=== PATIENT | female | born 1995 | race Caucasian/White ===

== ENCOUNTER 2017-03-28 09:45 | Emergency (ER) | payer OTHER ==
[2017-03-28 09:51] VITALS: TEMP 97.9; O2SAT 97
--- NOTE | 2017-03-28 10:10 | EDPHY ---
H & P Stated Complaint: [place] like her heart was racing;recent tx for strep throat - Personal History LMP (Females 10-55): Now Current Tetanus Diphtheria and Acellular Pertussis (TDAP): Yes - Medical/Surgical History Other PMH: negative - Social History Smoking Status: Never smoked Time Seen by Provider: 03/28/17 09:53 HPI/ROS: CHIEF COMPLAINT: Palpitations, "heart racing" dyspnea, left chest discomfort HISTORY OF PRESENT ILLNESS: 21-year-old female generally healthy arrives via private vehicle stating that 1 week ago she was treated for strep pharyngitis. The symptoms have resolved. This morning (Tuesday) she was driving to work and had sudden onset of left-sided non pleuritic chest discomfort, dyspnea, palpitations, subjective tachycardia. She went to work, laid down in her car and developed subsequent self-described panic attack. She then went to [facility] and was referred to the ER for further evaluation. At the time of interview and examination she denies the subjective tachycardia sensation and palpitations with states that she continues to experience dyspnea and left-sided chest discomfort. There is no radiation of this chest discomfort. She did eat breakfast. No energy or caffeinated beverages. No syncope or near syncope. No abdominal pain. No history of illicit drug use including cocaine use. No exogenous estrogen use. No history of thyroid issues PRIMARY CARE PROVIDER:Dr. Jeff Horta REVIEW OF SYSTEMS: A ten point review of systems was performed and is negative with the exception of the items mentioned in the HPI PAST MEDICAL & SURGICAL HISTORY: No pertinent medical or surgical history SOCIAL HISTORY: Nonsmoker. No cocaine use. FAMILY HISTORY: No family history of premature coronary artery disease, no family history of thromboembolic disorder PHYSICAL EXAM (Prior to examination, patient consented to physical exam, hands were washed and my usual and customary physical exam procedures followed) 1) GENERAL: Well-developed, well-nourished, alert and oriented. Appears anxious 2) HEAD: Normocephalic, atraumatic 3) HEENT: Pupils equal, round, reactive to light bilaterally. Sclera anicteric. Nasopharynx, oropharynx, clear, no lesions. Ears bilaterally with normal tympanic membranes. 4) NECK: Full range of motion, no bruit 5) LUNGS: Clear auscultation bilaterally, no wheezes, no rhonchi, no retractions. 6) HEART: Regular rate and rhythm, no murmur, no heave, no gallop. 7) ABDOMEN: No guarding, no rebound, no focal tenderness, negative McBurney's, negative Black's, negative Rovsing's, negative peritoneal sign, 8) MUSCULOSKELETAL: negative Homans no palpable cord Moving all extremities, no focal areas of tenderness, no obvious trauma. No peripheral edema or discoloration. 9) BACK: No CVA tenderness, no midline vertebral tenderness, no fluctuance, no step-off, no obvious trauma, no visual or palpable abnormality. 10) SKIN: No rash, no petechiae. 11) Psychiatric: Patient is oriented X 3, there is no agitation. DIFFERENTIAL DIAGNOSIS: in no particular order including but not limited to cardiac arrhythmia, thyroid pathology, pulmonary embolus, pneumothorax (Tari,Shanna Yolanda) Constitutional: Initial Vital Signs Temperature (C) 36.6 C 03/28/17 09:49 Heart Rate 85 03/28/17 09:49 Respiratory Rate 18 03/28/17 09:49 Blood Pressure 107/76 03/28/17 09:49 O2 Sat (%) 97 03/28/17 09:49 O2 Delivery Mode Room Air Allergies/Adverse Reactions: No Known Allergies Allergy (Unverified 03/28/17 09:48) Home Medications: Medication Instructions Recorded NK [No Known Home Meds] 03/28/17 Medical Decision Making ED Course/Re-evaluation: 10:10 a.m.: Discussed case with Dr. Shyanne Freeman in the ER. Will obtain diagnostic studies and re-evaluate 11:23 a.m.: Patient re-evaluated with serial exams in the emergency department. Discussed her negative D-dimer and other lack of risk factors which I think sufficiently ruled out pulmonary embolus in this patient. Doubt cardiac etiology as she has no risk factors, no family history. At this time I do not think that further diagnostic studies indicated from the emergency department. I do not think that admission is currently indicated. We discussed that the patient's episodes this morning may have been secondary to acute anxiety reaction. The patient feels comfortable being discharged. Recommend following up with her primary care provider in 1-2 days. Definitely should she develop return of symptoms she needs to seek immediate medical attention. She has been informed that should she develop further episodes she may necessitate cardiology consultation. (Shanna Marc) This patient was evaluated and managed by the PA. I agree with the evaluation and plan of care. I am the secondary supervising physician. (Shyanne Freeman) - Data Points Laboratory Results: Laboratory Results 03/28/17 10:05 03/28/17 10:05 Departure - Departure Disposition: Home, Routine, Self-Care Clinical Impression: Palpitations Condition: Good Instructions: Palpitations (ED) Additional Instructions: Call 911 if you develop chest pain, shortness of breath, palpitation or any other symptoms that concern you Referrals: Jeff Horta, [Primary Care Provider] - 1-2 days without fail
[2017-03-28 10:19] LABS: % IMMATURE GRANULYOCYTES 0.2 % (0.0-1.1); ABSOLUTE IMMATURE GRANULOCYTES 0.01 10^3/uL (0.00-0.10); ADD DIFF? NO; ADD MORPH? NO; ADD SCAN? NO; ATYPICAL LYMPHOCYTE FLAG 20 (0-99); FRAGMENT RBC FLAG 0 (0-99); HEMATOCRIT 37.6 % (38.0-47.0); LEFT SHIFT FLG 20 (0-99); LIPEMIA HEMOLYSIS FLAG 90 (0-99); MEAN CELL HEMOGLOBIN 32.5 pg (27.9-34.1); MEAN CELL HEMOGLOBIN CONCENTR. 34.6 g/dL (32.4-36.7); MEAN PLATELET VOLUME 9.6 fL (8.7-11.7); PLATELET CLUMPS FLAG 0 (0-99); PLATELET COUNT 274 10^3/uL (150-400); RED CELL DISTRIBUTION WIDTH 11.8 % (11.5-15.2)
[2017-03-28 10:33] LABS: ANION GAP 12 mEq/L (8-16); CALCIUM 9.2 mg/dL (8.5-10.4); CARBON DIOXIDE 19 mEq/l (22-31); CHLORIDE 113 mEq/L (97-110); CREATININE 0.6 mg/dL (0.6-1.0); GLOMERULAR FILTRATION RATE > 60; GLUCOSE 97 mg/dL (70-100); POTASSIUM 4.2 mEq/L (3.5-5.2); SODIUM 144 mEq/L (134-144)
[2017-03-28 11:46] VITALS: BP 103/63; PULSE 67; RESP 16
--- NOTE | 2017-03-31 14:10 | CPEKG ---
Heart Rate: 77 RR Interval: 779 P-R Interval: 144 QRSD Interval: 86 QT Interval: 392 QTC Interval: 444 P Huxley: 51 QRS Huxley: 79 T Wave Huxley: 53 EKG Severity - NORMAL ECG - EKG Impression: SINUS RHYTHM Preliminary Awaiting MD Review
== END 2017-03-28 11:45 | disposition home or self-care (01) ==
DX: R00.2 Palpitations (principal)

== ENCOUNTER → 2017-09-25 | Outpatient (CLI) | payer OTHER | LOC: FCPNEURO 23:31 | PROVIDERS: ATTEND Student in an Organized Health Care Education/Training Program | DX: G47.419 Narcolepsy without cataplexy (principal) ==

== ENCOUNTER → 2017-09-29 | Outpatient (CLI) | payer OTHER | LOC: BMCIMAGING 18:23 | PROVIDERS: ATTEND Family Medicine | DX: S61.210A Laceration without foreign body of right index finger without damage to nail, initial encounter (principal) ==